=== PATIENT | female | born 1995 | race Caucasian/White ===

== ENCOUNTER 2018-12-18 17:33 | Emergency (ER) | payer SELFPAY ==
--- NOTE | 2018-12-18 18:57 | EDM.PDOC ---
ED HPI GENERAL MEDICAL PROBLEM - General Chief Complaint: ENT Problem Stated Complaint: SWOLLEN SIDE OF FACE Time Seen by Provider: 12/18/18 17:51 Source of Information: Reports: Patient History Limitations: Reports: No Limitations - History of Present Illness INITIAL COMMENTS - FREE TEXT/NARRATIVE: HISTORY AND PHYSICAL: History of present illness: Presents reporting right-sided facial tensing. It just started this evening. She called her primary provider. Dr. Colindres told her to come to the ER. She is having no other symptoms. Last week she was treated for kidney stones with tamsulosin and an antibiotic. No signs of allergic reaction should such as rash , wheezing, mouth tongue or lip swelling, shortness of breath or fever. She does have a history of TMJ. Review of systems: As per history of present illness and below otherwise all systems reviewed and negative. Past medical history: As per history of present illness and as reviewed below otherwise noncontributory. Surgical history: As per history of present illness and as reviewed below otherwise noncontributory. Social history: No reported history of drug or alcohol abuse. Family history: As per history of present illness and as reviewed below otherwise noncontributory. Physical exam: HEENT: Atraumatic, normocephalic, pupils reactive, negative for conjunctival pallor or scleral icterus, mucous membranes moist, throat clear, neck supple, nontender, trachea midline. Lungs: Clear to auscultation, breath sounds equal bilaterally, chest nontender. Heart: S1S2, regular, negative for clicks, rubs, or JVD. Abdomen: Soft, nondistended, nontender. Negative for masses or hepatosplenomegaly. Negative for costovertebral tenderness. Pelvis: Stable nontender. Genitourinary: Deferred. Rectal: Deferred. Extremities: Atraumatic, negative for cords or calf pain. Neurovascular unremarkable. Neuro: Awake, alert, oriented. Cranial nerves II through XII unremarkable. Cerebellum unremarkable. Motor and sensory unremarkable throughout. Exam nonfocal. Diagnostics: [] Therapeutics: [] Impression: [] Plan: [] Definitive disposition and diagnosis as appropriate pending reevaluation and review of above. 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) Other DEVICE SALES CONSULTANT History: anemia Hematologic History: Reports: Anemia Immunologic History: Reports: None Oncologic (Cancer) History: Reports: None - Infectious Disease History Infectious Disease History: Reports: None - Past Surgical History HEENT Surgical History: Reports: Eye Surgery Social & Family History - Family History Family Medical History: Noncontributory - Tobacco Use Smoking Status *Q: Never Smoker - Caffeine Use Caffeine Use: Reports: Coffee - Recreational Drug Use Recreational Drug Use: Yes Drug Use in Last 12 Months: Yes Recreational Drug Type: Reports: Marijuana/Hashish ED ROS ENT - Review of Systems Review Of Systems: ROS reveals no pertinent complaints other than HPI. ED EXAM, ENT - Physical Exam Exam: See Below Exam Limited By: No Limitations General Appearance: Alert, No Apparent Distress Ears: Normal External Exam, Normal TMs Nose: Normal Inspection Mouth/Throat: Normal Inspection, Normal Oropharynx, Normal Teeth, Pharyngeal Erythema (Mild), Other (Right face without swelling, erythema, ecchymosis mild tenderness over the TMJ). No: Lip Swelling, Tonsillar Swelling Head: Atraumatic, Normocephalic Neck: Normal Inspection. No: Lymphadenopathy (L), Lymphadenopathy (R) Respiratory/Chest: No Respiratory Distress, Lungs Clear, Normal Breath Sounds Cardiovascular: Normal Peripheral Pulses, Regular Rate, Rhythm, No Murmur Extremities: Normal Inspection Neurological: Alert, Oriented Psychiatric: Normal Affect, Normal Mood Skin: Warm, Dry, Intact, Normal Color, No Rash Lymphatic: No Adenopathy Course - Vital Signs Last Recorded V/S: Last Vital Signs Temp 37.4 C 12/18/18 17:40 Pulse 108 H 12/18/18 17:40 Resp 16 12/18/18 17:40 BP 130/80 12/18/18 17:40 Pulse Ox 98 12/18/18 17:40 - Orders/Labs/Meds Orders: Active Orders 24 hr Category Date Time Status CULTURE STREP A CONFIRMATION [RM] Stat Lab 12/18/18 18:25 Results STREP SCRN A RAPID W CULT CONF [RM] Stat Lab 12/18/18 18:19 Ordered Departure - Departure Time of Disposition: 18:56 Disposition: Home, Self-Care 01 Condition: Good Clinical Impression: TMJ (temporomandibular joint disorder) - Discharge Information Referrals: PCP,Unknown [Primary Care Provider] - Soto Whittington DO [Physician] - Additional Instructions: The following information is given to patients seen in the emergency department who are being discharged to home. This information is to outline your options for follow-up care. We provide all patients seen in our emergency department with a follow-up referral. The need for follow-up, as well as the timing and circumstances, are variable depending upon the specifics of your emergency department visit. If you don't have a primary care physician on staff, we will provide you with a referral. We always advise you to contact your personal physician following an emergency department visit to inform them of the circumstance of the visit and for follow-up with them and/or the need for any referrals to a consulting specialist. The emergency department will also refer you to a specialist when appropriate. This referral assures that you have the opportunity for follow-up care with a specialist. All of these measure are taken in an effort to provide you with optimal care, which includes your follow-up. Under all circumstances we always encourage you to contact your private physician who remains a resource for coordinating your care. When calling for follow-up care, please make the office aware that this follow-up is from your recent emergency room visit. If for any reason you are refused follow-up, please contact the [facility] Emergency Department at and asked to speak to the emergency department charge nurse. - My Orders Last 24 Hours: My Active Orders 12/18/18 18:19 STREP SCRN A RAPID W CULT CONF [RM] Stat 12/18/18 18:25 CULTURE STREP A CONFIRMATION [RM] Stat - Assessment/Plan Last 24 Hours: My Active Orders 12/18/18 18:19 STREP SCRN A RAPID W CULT CONF [RM] Stat 12/18/18 18:25 CULTURE STREP A CONFIRMATION [RM] Stat
== END 2018-12-18 19:08 | disposition home or self-care (01) ==
LOC: MW.ED 17:33
DX: M26.601 Right temporomandibular joint disorder, unspecified (principal); Z79.899 Other long term (current) drug therapy; Z87.442 Personal history of urinary calculi
CPT/HCPCS: 87081; 87880-QW; 99282; 99283

== ENCOUNTER 2019-02-03 23:20 | Emergency (ER) | payer MEDICAID ==
[2019-02-03 23:33] VITALS: PULSE 78
[2019-02-03] MEDS ORDERED: Sodium Chloride 0.9% 2.5 ML Syringe FLUSH PRN ×2 (23:38)
[2019-02-03] MEDS ORDERED: Sodium Chloride 0.9% 10 ML Syringe FLUSH PRN ×2 (23:38)
[2019-02-03] MEDS: Sulfamethoxazole/Trimethoprim 800-160 MG Tab PO ONE (23:39)
--- NOTE | 2019-02-03 23:39 | EDM.PDOC ---
ED HPI GENERAL MEDICAL PROBLEM - General Chief Complaint: Headache Stated Complaint: MIGRANE Time Seen by Provider: 02/03/19 23:39 Source of Information: Reports: Patient History Limitations: Reports: No Limitations - History of Present Illness INITIAL COMMENTS - FREE TEXT/NARRATIVE: HISTORY AND PHYSICAL: History of present illness: Patient is a 23-year-old female presents to the ED with complaint of migraine. She states it started yesterday and has progressively gotten worse this evening. She reports a history of migraines as a child but has not had one in years. She states the pain is in the back of her neck and forehead bilaterally. She has had associated nausea and vomiting. Denies head injury, photophobia, visual changes, fevers, chills, abdominal pain. She rates her pain an 8/10. Review of systems: As per history of present illness and below otherwise all systems reviewed and negative. Past medical history: As per history of present illness and as reviewed below otherwise noncontributory. Surgical history: As per history of present illness and as reviewed below otherwise noncontributory. Social history: No reported history of drug or alcohol abuse. Family history: As per history of present illness and as reviewed below otherwise noncontributory. Physical exam: General: Patient sitting comfortably in no acute distress and nontoxic appearing HEENT: Atraumatic, normocephalic, pupils reactive, negative for conjunctival pallor or scleral icterus, mucous membranes moist, throat clear, neck supple, nontender, trachea midline. No meningeal signs. Lungs: Clear to auscultation, breath sounds equal bilaterally, chest nontender. Heart: S1S2, regular, negative for clicks, rubs, or overt murmur. Abdomen: Soft, nondistended, nontender. Negative for masses or hepatosplenomegaly. Negative for costovertebral tenderness. No rigidity, rebound , guarding. Pelvis: Stable nontender. Genitourinary: Deferred. Rectal: Deferred. Extremities: Atraumatic, negative for cords or calf pain. Neurovascular unremarkable. Neuro: Awake, alert, oriented. Cranial nerves II through XII unremarkable. Cerebellum unremarkable. Motor and sensory unremarkable throughout. Exam nonfocal. Notes: Headache improved with therapeutics and patient requesting to go home. Diagnostics: [] Therapeutics: 1L NS IV 30mg Toradol IV 10mg Reglan IV 4mg Zofran IV 50mg Benadryl IV Prescriptions: Impression: Headache Plan: Rest and plenty of fluids and alternate tylenol and ibuprofen as needed Follow up with primary care provider Return to ED as needed as discussed Definitive disposition and diagnosis as appropriate pending reevaluation and review of above. 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 - Physical Exam Exam: See Below (see dictation) Course - Vital Signs Last Recorded V/S: Last Vital Signs Temp 98 F 02/04/19 00:33 Pulse 78 02/03/19 23:28 Resp 16 02/04/19 00:33 BP 91/42 L 02/04/19 00:33 Pulse Ox 95 02/04/19 00:33 - Orders/Labs/Meds Meds: Medications Discontinued Medications Generic Name Dose Route Start Last Admin Trade Name Freq PRN Reason Stop Dose Admin Diphenhydramine HCl 25 mg 02/03/19 23:38 02/03/19 23:48 Benadryl IVPUSH 02/03/19 23:39 25 mg ONETIME ONE Administration Sodium Chloride 1,000 mls @ 999 mls/hr 02/03/19 23:38 02/03/19 23:47 Normal Saline IV 02/04/19 00:38 999 mls/hr STAT ONE Administration Ketorolac Tromethamine 30 mg 02/03/19 23:38 02/03/19 23:48 Toradol IVPUSH 02/03/19 23:39 30 mg ONETIME ONE Administration Metoclopramide HCl 10 mg 02/03/19 23:38 02/03/19 23:49 Reglan IVPUSH 02/03/19 23:39 10 mg ONETIME ONE Administration Ondansetron HCl 4 mg 02/03/19 23:38 02/03/19 23:47 Zofran IVPUSH 02/03/19 23:39 4 mg ONETIME ONE Administration Sodium Chloride 10 ml 02/03/19 23:38 Saline Flush FLUSH ASDIRECTED PRN Keep Vein Open Sodium Chloride 2.5 ml 02/03/19 23:38 Saline Flush FLUSH ASDIRECTED PRN Keep Vein Open Sodium Chloride 10 ml 02/03/19 23:38 Saline Flush FLUSH ASDIRECTED PRN Keep Vein Open Sodium Chloride 2.5 ml 02/03/19 23:38 Saline Flush FLUSH ASDIRECTED PRN Keep Vein Open Trimethoprim/Sulfamethoxazole 1 tab 02/03/19 23:33 02/03/19 23:39 Septra Ds PO 02/03/19 23:34 Not Given ONETIME ONE Departure - Departure Time of Disposition: 23:25 Disposition: Home, Self-Care 01 Condition: Good Clinical Impression: Headache - Discharge Information Instructions: Migraine Headache, [id number] Referrals: PCP,None [Ordering Only Provider] - Forms: ED Department Discharge Additional Instructions: The following information is given to patients seen in the emergency department who are being discharged to home. This information is to outline your options for follow-up care. We provide all patients seen in our emergency department with a follow-up referral. The need for follow-up, as well as the timing and circumstances, are variable depending upon the specifics of your emergency department visit. If you don't have a primary care physician on staff, we will provide you with a referral. We always advise you to contact your personal physician following an emergency department visit to inform them of the circumstance of the visit and for follow-up with them and/or the need for any referrals to a consulting specialist. The emergency department will also refer you to a specialist when appropriate. This referral assures that you have the opportunity for follow-up care with a specialist. All of these measure are taken in an effort to provide you with optimal care, which includes your follow-up. Under all circumstances we always encourage you to contact your private physician who remains a resource for coordinating your care. When calling for follow-up care, please make the office aware that this follow-up is from your recent emergency room visit. If for any reason you are refused follow-up, please contact the [facility] Emergency Department at and asked to speak to the emergency department charge nurse. [facility] Primary Care [address] [place] [id number] [facility] [address] [place] [id number] Rest and plenty of fluids and alternate tylenol and ibuprofen as needed Follow up with primary care provider Return to ED as needed as discussed
[2019-02-03] MEDS: Sodium Chloride 0.9% 1,000 ML IV ONE (23:47)
[2019-02-03] MEDS: Ondansetron 4 MG/2 ML SDV IVPUSH ONE (23:47)
[2019-02-03] MEDS: Ketorolac 30 MG/ML SDV IVPUSH ONE (23:48)
[2019-02-03] MEDS: diphenhydrAMINE 50 MG/ML SDV IVPUSH ONE (23:48)
[2019-02-03] MEDS: Metoclopramide 10 MG/2 ML SDV IVPUSH ONE (23:49)
[2019-02-04 00:50] VITALS: BP 91/42
== END 2019-02-04 01:04 | disposition home or self-care (01) ==
LOC: MW.ED 23:20
DX: R51 Headache (principal); R11.2 Nausea with vomiting, unspecified; Z79.899 Other long term (current) drug therapy; Z86.2 Personal history of diseases of the blood and blood-forming organs and certain disorders involving the immune mechanism
CPT/HCPCS: 96361; 96374; 96375; 99283; 99283-25; J1200; J1885; J2405; J2765; J7040